=== PATIENT | male | born 1995 | race Caucasian/White ===

== ENCOUNTER 2021-11-12 15:48 | Emergency (ER) | payer OTHER ==
[~2021-11-12 15:48] MED LIST: BLOOD PRESSURE1 EACH MC; CLARITIN-D 241 EACH PO; IBUPROFEN800 MG PO; TESSALON PERLE100 M1 PO
[2021-11-12 16:38] LABS: BASOPHIL 0.6 % (0-2); EOSINOPHIL 0.1 % (0-5); HCT 47.9 % (42.0-52.0); HGB 15.6 g/dl (13.2-18.0); LYMPHOCYTE 18.8 % (15-48); MCH 28.8 pg (25.0-31.0); MCHC 32.6 g/dL (32.0-36.0); MCV 88.5 fL (78.0-100.0); MONOCYTE 9.2 % (0-12); MPV 9.5 fL (6.0-9.5); NEUTROPHIL 71.1 % (41-80); NRBC 0; PLT 346 K/uL (150-400); RBC 5.41 M/uL (4.70-6.00); RDW 13.8 % (11.5-14.0); WBC 10.5 K/uL (4.0-10.5)
[2021-11-12 16:52] LABS: BUN/CREAT RATIO (CALC) 11.1 RATIO; CREATININE 0.99 mg/dL (0.67-1.17); POTASSIUM 3.9 mmol/L (3.5-5.1)
[2021-11-12 17:16] LABS: CORONAVIRUS 2019 SARS-COV-2 NEGATIVE (NEGATIVE); INFLUENZA A NAA NEGATIVE (NEGATIVE)
== END 2021-11-12 19:04 | disposition home or self-care (01) ==
LOC: FER 15:48
PROVIDERS: Nurse Practitioner Family
DX: G44.209 Tension-type headache, unspecified, not intractable (principal); Z20.822 Contact with and (suspected) exposure to COVID-19
CPT/HCPCS: 36415; 70450; 80048; 85025; J1100; J1885; J7030; U0002